=== PATIENT | female | born 1995 | race Two or more races ===

== ENCOUNTER 2025-03-30 06:45 | Outpatient (CLI) | payer OTHER ==
[2025-03-30 07:32] LABS: URINE APPEARANCE Cloudy; URINE BILIRRUBIN Negative (NEGATIVE); URINE BLOOD Negative; URINE COLOR Yellow; URINE GLUCOSE Negative (NEGATIVE); URINE KETONE Trace (NEGATIVE); URINE LEUKOCYTE Moderate; URINE NITRATE Negative; URINE PROTEIN Negative (NEGATIVE); URINE UROBILINOGEN 1.0 E.U./dl
[2025-03-30 07:36] LABS: URINE BACTERIA 562.7 uL (0.0-1933); URINE EPITHELIAL CELLS 87.2 uL (0.0-38.8); URINE RBC 37.9 uL (0.0-20.8); URINE WBC 22.9 uL (0.0-23.2)
[2025-03-30 07:39] LABS: URINE CAST 0.43 uL (0.0-1.40)
[2025-03-30 07:40] LABS: BASO % 0.2 % (0.1-1.2); EOS # 0.03 (0.04-0.54); EOS % 0.4 % (0.7-7.0); LYMPH # 2.26 (1.18-3.74); LYMPH % 27.3 % (19.3-53.1); MEAN PLATELET VOLUME 9.80 fl (9.4-12.4); MONO # 0.55 (0.24-0.82); MONO % 6.6 % (4.7-12.5); NEUT # 5.42 (1.56-6.13); NEUT % 65.4 % (34.0-71.1); RED CELL DISTRIBUTION WIDTH 12.7 % (11.6-14.4)
[2025-03-30 08:27] LABS: ALT/SGPT 19.0 U/L (12-78); AST/SGOT 9.0 U/L (15-37); BILIRUBIN TOTAL 1.81 mg/dL (0.3-1.2); BUN CREA RATIO 14.0 (7.0-25.0); CHOL HDL RATIO 2.9 (0-5.0); CREATININE SERUM 0.72 mg/dL (0.55-1.02); GFR 95.11; GLOBULINA 3.5 G/DL (2.4-3.5); GLUCOSE FASTING 101.0 mg/dL (65-100); HDL 55.0 mg/dl (40-60); LDL 94.0 mg/dl (0-130); OSMOLALITY SERUM 277.0 MOSM/KG (275-295); TSH 0.921 uIU/mL (0.358-3.74); VLDL 10.0 (0-39)
[2025-04-02 05:06] LABS: chla t Negative (Negative); neiss Negative (Negative)
[2025-04-03 05:07] LABS: hav igm Negative (Negative); hep b c Negative (Negative); hep b s ag Negative (Negative)
== END 2025-03-30 06:48 | disposition home or self-care (01) ==
LOC: LAB 06:45
PROVIDERS: ATTEND Obstetrics & Gynecology
DX: E78.5 Hyperlipidemia, unspecified (principal); E03.9 Hypothyroidism, unspecified; E11.8 Type 2 diabetes mellitus with unspecified complications; N93.0 Postcoital and contact bleeding; E55.9 Vitamin D deficiency, unspecified; Z11.3 Encounter for screening for infections with a predominantly sexual mode of transmission; A56.09 Other chlamydial infection of lower genitourinary tract; A54.03 Gonococcal cervicitis, unspecified; K75.9 Inflammatory liver disease, unspecified; A53.9 Syphilis, unspecified; B20 Human immunodeficiency virus [HIV] disease; A64 Unspecified sexually transmitted disease

== ENCOUNTER 2025-06-21 10:00 | Outpatient (CLI) | payer OTHER | END 2025-06-21 10:10 | disposition home or self-care (01) | LOC: PPH VACUNA 10:00 | PROVIDERS: ATTEND Emergency Medicine Pediatric Emergency Medicine | DX: Z23 Encounter for immunization (principal) ==